=== PATIENT | male | born 1985 | race Caucasian/White ===

== ENCOUNTER 2024-12-17 14:33 | Inpatient (IN) | payer MEDICAID ==
[~2024-12-17] VITALS: Ht 172.7 cm; Wt 92.5 kg
[2024-12-17 15:33] LABS: BASOPHILS % 0.9 % (0.0-2.0); DIFFERENTIAL COMMENT 0; EOSINOPHILS % 6.7 % (0.0-5.0); HEMATOCRIT. 42.1 % (42.0-52.0); HEMOGLOBIN. 14.6 g/dL (14.0-18.0); LYMPHOCYTES % 19.7 % (20.0-50.0); MEAN CORPUSCULAR HEMOGLOBIN 27.6 pg (28.0-32.0); MEAN CORPUSCULAR HGB CONC 34.7 g/dL (31.0-37.0); MEAN CORPUSCULAR VOLUME 79.5 fL (80.0-94.0); MEAN PLATELET VOLUME 8.3 fl (7.4-10.4); MONOCYTES % 3.5 % (2.0-8.0); NEUTROPHILS % 69.2 % (40.0-76.0); PLATELET 116 x1000/uL (130-400); RED BLOOD CELL COUNT 5.29 mill/uL (4.7-6.1); RED CELL DISTRIBUTION WIDTH 14.6 % (11.6-14.6); WHITE BLOOD COUNT 6.4 x1000/uL (4.5-11.0)
[2024-12-17 15:40] LABS: CHLORIDE 104 mEq/L (98-107); POTASSIUM 3.4 mEq/L (3.5-5.1); SODIUM 140 mEq/L (136-145)
[2024-12-17 15:41] LABS: CALCIUM 8.4 mg/dL (8.7-10.4); CARBON DIOXIDE 24 mEq/L (21-32)
[2024-12-17 15:46] LABS: CREATININE 0.7 mg/dL (0.6-1.3); GLUCOSE 96 mg/dL (70-105); PROTHROMBIN TIME 10.9 sec (9.6-11.0); UREA NITROGEN BLOOD 9 mg/dL (9-23)
[2024-12-17 15:48] LABS: ALANINE AMINOTRANSFERASE 70 IU/L (10-49); ALBUMIN 4.4 g/dL (3.2-4.8); ASPARTATE AMINOTRANSFERASE 77 IU/L (<34); BILIRUBIN DIRECT 0.2 mg/dL (<=3.0); BILIRUBIN TOTAL 0.5 mg/dL (0.1-1.0); TROPONIN I HIGH SENSITIVITY 5 ng/L (3.0-53)
[2024-12-17 15:49] LABS: PROTEIN TOTAL 6.9 g/dL (6.0-8.3)
[2024-12-17] MEDS ORDERED: GUAIFENESIN 200MG/10ML SUGAR FREE UDC PO PRN (17:15)
[2024-12-17] MEDS ORDERED: IPRATROPIUM/ALBUTEROL 0.5-3(2.5)MG/3ML NEB HHN PRN (17:15)
[2024-12-17] MEDS ORDERED: DOCUSATE SODIUM 100MG CAPSULE PO PRN (17:15)
[2024-12-17] MEDS ORDERED: MAGNESIUM/ALUMINUM HYDROXIDE/SIMETHICONE 30ML UDC PO PRN (17:15)
[2024-12-17] MEDS ORDERED: CLONIDINE 0.1MG TABLET PO PRN (17:15)
[2024-12-17] MEDS ORDERED: DEXTROSE 50% WATER 50ML SYRINGE IV PRN (17:15)
[2024-12-17] MEDS ORDERED: POTASSIUM CHLORIDE 40 MEQ in DEXT 5% WATER 230 ML IV ONE (17:15)
[2024-12-17] MEDS: ENOXAPARIN 40MG/0.4ML SYR SUBCUT SCH (17:30)
[2024-12-17 18:00] VITALS: BP 150/92; PULSE 95; RESP 18; TEMP 36.5
[2024-12-17 18:29] VITALS: BP 150/92; PULSE 95; RESP 18; TEMP 36.5
[2024-12-17] MEDS: POTASSIUM CHLORIDE 20MEQ TABLET SR PO SCH (19:07)
[2024-12-17] MEDS ORDERED: INFLUENZA VACCINE 05/PF 0.5 ML SYRINGE IM ONE (19:30)
[2024-12-17 20:00] VITALS: BP 145/94; PULSE 65; RESP 15; TEMP 36.6
[2024-12-17] MEDS: MVI, ADULT NO.1 10 ML, FOLIC ACID 1 MG, THIAMINE HCL 100 MG in SODIUM CHLORIDE 0.9% 1,0... IV SCH (21:07)
[2024-12-17 21:08] LABS: HEPATITIS B SURFACE ANTIGEN NEGATIVE (Negative)
[2024-12-17 21:22] LABS: HEPATITIS C AB NON REACTIVE (Neg) (Negative)
[2024-12-18] VITALS (7 sets, daily range): BP systolic 139–157; BP diastolic 80–97; PULSE 72–104; RESP 16–20; TEMP 35.9–36.8; O2SAT 97–98
[2024-12-18] MEDS: ACETAMINOPHEN 325MG TABLET PO PRN (01:00)
[2024-12-18] MEDS: ONDANSETRON HCL 4MG/2ML INJ IV PRN (03:49)
[2024-12-18 06:19] LABS: HEMATOCRIT. 42.1 % (42.0-52.0); HEMOGLOBIN. 14.4 g/dL (14.0-18.0); MEAN CORPUSCULAR HEMOGLOBIN 27.2 pg (28.0-32.0); MEAN CORPUSCULAR HGB CONC 34.3 g/dL (31.0-37.0); MEAN CORPUSCULAR VOLUME 79.3 fL (80.0-94.0); MEAN PLATELET VOLUME 8.9 fl (7.4-10.4); PLATELET 102 x1000/uL (130-400); RED BLOOD CELL COUNT 5.31 mill/uL (4.7-6.1); RED CELL DISTRIBUTION WIDTH 14.5 % (11.6-14.6); WHITE BLOOD COUNT 8.8 x1000/uL (4.5-11.0)
[2024-12-18 06:38] LABS: DIFFERENTIAL COMMENT 1
[2024-12-18 07:18] LABS: CARBON DIOXIDE 21 mEq/L (21-32); CHLORIDE 102 mEq/L (98-107); POTASSIUM 4.1 mEq/L (3.5-5.1); SODIUM 137 mEq/L (136-145)
[2024-12-18 07:20] LABS: T4 FREE 1.05 ng/dL (0.89-1.76); THYROID STIMULATING HORMONE 0.76 uIU/mL (0.55-4.78)
[2024-12-18 07:24] LABS: CREATININE 0.6 mg/dL (0.6-1.3); GLUCOSE 87 mg/dL (70-105); TRIGLYCERIDE 204 mg/dL (0-150); UREA NITROGEN BLOOD 8 mg/dL (9-23)
[2024-12-18 07:25] LABS: LDL CHOLESTEROL 95 mg/dL (5-100)
[2024-12-18 07:26] LABS: CHOLESTEROL 171 mg/dL (<200); HDL CHOLESTEROL 65 mg/dL (>55)
[2024-12-18] MEDS: PANTOPRAZOLE SODIUM 40 MG/VIAL IV SCH (08:25)
[2024-12-18] MEDS: FOLIC ACID 1MG TABLET PO SCH (08:25)
[2024-12-18] MEDS: THIAMINE HCL 100MG TABLET PO SCH (08:25)
[2024-12-18 11:19] LABS: CLARITY URINE CLEAR (CLEAR); COLOR URINE YELLOW (YELLOW); GLUCOSE URINE NEGATIVE (NEGATIVE); KETONES URINE 4+ (NEGATIVE); LEUKOCYTE ESTERASE URINE NEGATIVE (NEGATIVE); NITRITE URINE NEGATIVE (NEGATIVE); OCCULT BLOOD URINE TRACE (NEGATIVE); PH URINE 5.5 (4.5-8.0); PROTEIN URINE 1+ (NEGATIVE); SPECIFIC GRAVITY URINE 1.023 (1.005-1.030); UROBILINOGEN URINE 0.2 E.U./dL (0.2-1.0)
[2024-12-18 12:15] LABS: BACTERIA URINE RARE; RBC URINE NONE SEEN /hpf (0-2); SQUAMOUS EPITHELIAL CELL URINE NONE SEEN /lpf (RARE/1+); WBC URINE 0-2 /hpf (0-2); YEAST URINE NONE SEEN
[2024-12-18 12:22] LABS: *AMPHETAMINES SCREEN URINE NEGATIVE (NEGATIVE); *BARBITURATES SCREEN URINE NEGATIVE (NEGATIVE); *BENZODIAZEPINES SCREEN URINE NEGATIVE (NEGATIVE); *COCAINE SCREEN URINE NEGATIVE (NEGATIVE); METHADONE URINE SCREEN NEGATIVE (NEGATIVE)
[2024-12-18 12:23] LABS: CANNABINOID URINE SCREEN NEGATIVE (NEGATIVE); ECSTASY MDMA SCREEN URINE NEGATIVE (NEGATIVE); OPIATES URINE SCREEN NEGATIVE (NEGATIVE); PHENCYCLIDINE URINE SCREEN NEGATIVE (NEGATIVE)
[2024-12-18 13:53] LABS: NUCLEATED RED BLOOD CELLS 1 /100 WBC
[2024-12-18 13:54] LABS: MICROCYTOSIS 1+; PLATELET ESTIMATE DECREASED
[2024-12-18] MEDS ORDERED: PANT40SU PO (16:00)
[2024-12-20 17:07] LABS: ETHANOL URINE Negative % (Cutoff=0.020)
== END 2024-12-18 17:34 | disposition home or self-care (01) | DRG 52 ==
LOC: ER 14:33 → EDBEDREQ 16:22 → EDBEDREQSVC 16:22 → EDBEDREQTM 16:22 → ENRESERV 16:41 → CANRESERV 16:41 → ENRESERV 16:55 → 8WST 17:33 → 8EST 12-18 10:48
PROVIDERS: ADMIT Internal Medicine; ATTEND Internal Medicine
DX: G92.8 Other toxic encephalopathy (principal); K70.10 Alcoholic hepatitis without ascites; D75.89 Other specified diseases of blood and blood-forming organs; E66.9 Obesity, unspecified; J45.909 Unspecified asthma, uncomplicated; F10.229 Alcohol dependence with intoxication, unspecified; E87.6 Hypokalemia; Z79.899 Other long term (current) drug therapy; Z68.31 Body mass index [BMI] 31.0-31.9, adult
CPT/HCPCS: 36415; 71045; 80048; 80061; 80076; 80305; 80320; 81003; 83036; 83735; 84100; 84439; 84443; 84484; 85025; 86705; 87340; 90686; 93005; 99285; J1650; J2405; J2470; J3411; J3490; J7030